=== PATIENT | female | born 2000 | race Two or more races ===

== ENCOUNTER 2024-04-22 15:06 | Emergency (ER) | payer MEDICAID, OTHER ==
[~2024-04-22] VITALS: Ht 160 cm; Wt 59.0 kg
[2024-04-22 15:54] VITALS: BP 141/86; PULSE 111; RESP 16; TEMP 98.7; O2SAT 97
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
== END 2024-04-22 16:26 | disposition home or self-care (01) ==
LOC: ER 15:06
DX: S01.81XA Laceration without foreign body of other part of head, initial encounter (principal); Y08.89XA Assault by other specified means, initial encounter; Y93.89 Activity, other specified; Y92.89 Other specified places as the place of occurrence of the external cause; Y99.8 Other external cause status
CPT/HCPCS: 12011

== ENCOUNTER 2024-05-03 14:54 | Emergency (ER) | payer MEDICAID ==
[~2024-05-03] VITALS: Ht 160 cm; Wt 59.2 kg
[2024-05-03 15:46] VITALS: BP 108/68; PULSE 70; RESP 17; TEMP 98.9; O2SAT 98
== END 2024-05-03 15:54 | disposition home or self-care (01) ==
LOC: ER 14:54
DX: S01.81XD Laceration without foreign body of other part of head, subsequent encounter (principal); Z48.02 Encounter for removal of sutures; X58.XXXD Exposure to other specified factors, subsequent encounter